=== PATIENT | male | born 1945 | race Caucasian/White ===

== ENCOUNTER 2017-01-04 22:25 | Emergency (ER) | payer MEDICARE ==
[2017-01-04] MEDS ORDERED: SODIUM CHLORIDE 0.9% 1,000 ML IV STA (22:31)
[2017-01-04] MEDS ORDERED: PANTOPRAZOLE 40 MG/10 ML VIAL IVP STA (22:31)
[2017-01-04] MEDS ORDERED: LORazepam 2 MG/ML SYRINGE IV PRN ×2 (22:36)
[2017-01-04] MEDS ORDERED: IPRATROPIUM-ALBUTEROL 3 ML NEB INHALATION PRN (22:36)
[2017-01-04] MEDS ORDERED: PROPOFOL 500 MG in EMPTY BAG 1 BAG IV SCH (22:45)
[2017-01-04] MEDS ORDERED: NOREPINEPHRIN 4 MG-0.9% NS PMX 4 MG in SALINE 1 250ML.BAG IV ONE (22:48)
--- NOTE | 2017-01-04 22:54 | XR ---
EXAMINATION TYPE: XR chest 1V portable DATE OF EXAM: 01/04/2017 10:45 PM COMPARISON: NONE HISTORY: Tube placement TECHNIQUE: Single frontal view of the chest is obtained. FINDINGS: There is a nasogastric tube and the tip is probably in the body of the stomach. There is a n endotracheal tube that has tip in fairly good position. There is patchy infiltrate in the left lowe r lobe. There is no heart failure. There is no pleural effusion. IMPRESSION: Tubing appears in good position. Left lower lobe pneumonia. No heart failure.
[2017-01-04 22:56] LABS: Appearance,Urine Turbid (Clear); Bilirubin,Urine Negative (Negative); Glucose,Urine (UA) Negative (Negative); Ketones,Urine Negative (Negative); Leukocyte Esterase,Urine Large (Negative); Nitrite,Urine Negative (Negative); PH, Urine 5.5 (5.0-8.0); Particle Count 191258; Protein,Urine 1+ (Negative); RBC,Urine >182 /hpf (0-5); Specific Gravity,Urine 1.014 (1.001-1.035); Squamous Epithelial Cell,Urine 42 /hpf (0-4); UA Billing (MACRO vs. MICRO) MICRO; Urobilinogen,Urine <2.0 mg/dL (<2.0); WBC,Urine >182 /hpf (0-5)
[2017-01-04 22:56] LABS: CH 29.9; CHCM 28.1; HCT 35.5 % (39.0-53.0); HDW 1.97; HGB 10.4 gm/dL (13.0-17.5); Hypochromasia Marked; Immature Gran Flag Marked; MCH 31.3 pg (25.0-35.0); MCHC 29.3 g/dL (31.0-37.0); Macrocytosis Moderate; Mean Platelet Volume 9.2; RBC 3.32 m/uL (4.30-5.90); RDW 13.2 % (11.5-15.5); WBC 7.7 k/uL (3.8-10.6); WBC (Perox) 8.49
[2017-01-04 23:00] LABS: Calcium 8.8 mg/dL (8.4-10.2); INR 1.2 (<1.1); Magnesium 3.4 mg/dL (1.6-2.3); Partial Thromboplastin Time 25.4 sec (22.0-30.0); Prothrombin Time 12.3 sec (9.0-12.0); Total Bilirubin 0.6 mg/dL (0.2-1.3); Total Protein 5.2 g/dL (6.3-8.2)
--- NOTE | 2017-01-04 23:04 | ED ---
General Adult HPI - General Chief complaint: Cardiac Arrest/CPR Stated complaint: cardiac Time Seen by Provider: 01/04/17 22:31 Source: EMS, RN notes reviewed Mode of arrival: EMS Limitations: altered mental status, physical limitation - History of Present Illness Initial comments: Patient is an unresponsive 71-year-old male presenting by EMS following cardiac arrest. Patient reportedly has been sick for a few days and vomiting. Family found patient unresponsive. Patient reportedly has kidney problems however has not yet started dialysis. Patient is unable to provide any further history. EMS did provide CPR for approximately 20 minutes before return of circulation. - Related Data Home Medications Medication Instructions Recorded Confirmed Baclofen [Lioresal] 5 mg PO BID 01/04/17 01/04/17 Doxycycline Monohydrate [Monodox] 100 mg PO DAILY 01/04/17 01/04/17 Allergies Allergy/AdvReac Type Severity Reaction Status Date / Time No Known Allergies Allergy Verified 01/04/17 23:18 Review of Systems ROS Statement: Those systems with pertinent positive or pertinent negative responses have been documented in the HPI. ROS Other: All systems not noted in ROS Statement are negative. Limitations: ROS unobtainable due to patients medical condition Past Medical History Additional Past Medical History / Comment(s): unknown pt is unresponsive, family not present and pt has not been here before, unable to find old records History of Any Multi-Drug Resistant Organisms: Unobtainable Additional Past Surgical History / Comment(s): unknown pt is unresponsive, family not present and pt has not been here before, unable to find old records Past Psychological History: Unable to Obtain Smoking Status: Unknown if ever smoked Past Alcohol Use History: Unable to Obtain Past Drug Use History: Unable to Obtain General Exam Limitations: altered mental status, physical limitation General appearance: obtunded Head exam: Present: atraumatic Eye exam: Present: other (Pupils are fixed and dilated) ENT exam: Present: other (Intubated) Neck exam: Present: normal inspection Respiratory exam: Present: other (No spontaneous breath sounds. Equal breath sounds with bagging insufflation.) Cardiovascular Exam: Present: tachycardia GI/Abdominal exam: Present: soft. Absent: tenderness Extremities exam: Present: normal inspection Neurological exam: Present: other (Unresponsive) Expanded Eye Response: (1) no response Motor Response: (1) no motor response Verbal Response: (1) no verbal response Psychiatric exam: Present: other (Nonverbal) Skin exam: Absent: rash Course Vital Signs 01/04/17 01/04/17 01/04/17 22:25 22:45 22:54 Temperature 99.4 F Pulse Rate 54 L 101 H 132 H Respiratory 12 12 Rate Blood Pressure 65/49 237/111 O2 Sat by Pulse 96 96 Oximetry 01/04/17 01/04/17 01/04/17 23:01 23:31 23:32 Temperature Pulse Rate 103 H 120 H 113 H Respiratory 12 Rate Blood Pressure 102/52 253/122 O2 Sat by Pulse 96 Oximetry 01/04/17 01/04/17 01/04/17 23:36 23:44 23:54 Temperature Pulse Rate 113 H 102 H 107 H Respiratory 12 14 Rate Blood Pressure 215/79 130/46 208/100 O2 Sat by Pulse 96 96 Oximetry 01/05/17 01/05/17 00:00 01:00 Temperature 98.7 F Pulse Rate 122 H 93 Respiratory 14 20 Rate Blood Pressure 109/55 69/41 O2 Sat by Pulse 97 96 Oximetry - Reevaluation(s) Reevaluation #1: 01/04/17 23:01 Patient again lost pulse and did respond to 1 amp of bicarb and 1 epinephrine. 01/04/17 23:20 Patient technically does meet sepsis criteria however other factors are involved. Patient does have appearance of UTI. IV Rocephin has been started. Patient has been provided 2 L of fluid so far and this is continued. Case was discussed in detail with Dr. Lee who recommends further IV fluids and treatment of hyperkalemia. 01/04/17 23:30 Patient did lose pulses again and CPR was done less than 5 minutes. Patient was given a 2 and calcium and epinephrine. 01/04/17 23:40 Discussion had with family who confirms history. They state patient just started getting sick yesterday. They're made aware of extremely critical condition. Repeat EKG shows A. fib with rate of 103. To rest before. QT 340. QTc 455. Right axis. Septal Q waves. No acute ST change. 01/05/17 00:46 Patient has now lost pulses a total of 4 times in the emergency department. Niece again updated and decision is made at this time to make patient DO NOT RESUSCITATE. 01/05/17 01:13 Patient was found to have loss of pulse. Patient has no pulses. Asystole on the monitor. No spontaneous heart sounds. No taste breath sounds. Pupils are fixed and dilated. No signs of pain. Time of is 1:11 AM. EKG Findings - EKG Comments: EKG Findings:: A. fib with RVR, rate 135. QRS 86. QT 36. QTc 429. Normal axis. Normal QRS. Diffuse T-wave inversion. Medical Decision Making - Medical Decision Making Family was notified by nursing staff. Case was discussed with registered medical assistant Aniya [facility] Unable to get ahold of primary care physician. Douglas thought the primary care physician was out of [facility], Dr. Tahira Rick, but we are unable to identify this time. - Lab Data Result diagrams: 01/04/17 22:40 01/04/17 22:40 Lab Results 01/04/17 01/04/17 01/04/17 Range/Units 22:31 22:40 22:40 WBC 7.7 (3.8-10.6) k/uL RBC 3.32 L (4.30-5.90) m/uL Hgb 10.4 L (13.0-17.5) gm/dL Hct 35.5 L (39.0-53.0) % MCV 107.0 H (80.0-100.0) fL MCH 31.3 (25.0-35.0) pg MCHC 29.3 L (31.0-37.0) g/dL RDW 13.2 (11.5-15.5) % Plt Count 195 (150-450) k/uL Neutrophils % (Manual) 46.0 % Band Neutrophils % 20.0 % Lymphocytes % (Manual) 27.5 % Monocytes % (Manual) 2.0 % Metamyelocytes % 4.5 % Neutrophils # (Manual) 5.1 (1.3-7.7) k/uL Lymphocytes # (Manual) 2.1 (1.0-4.8) k/uL Monocytes # (Manual) 0.2 (0-1.0) k/uL Nucleated RBCs 0 (0-0) /100 WBC Manual Slide Review Performed Hypochromasia Marked Macrocytosis Moderate PT (9.0-12.0) sec INR (<1.1) APTT (22.0-30.0) sec Sample Site ABG pH (7.35-7.45) ABG pCO2 (35-45) mmHg ABG pO2 (83-108) mmHg ABG HCO3 (21-25) mmol/L ABG Total CO2 (19-24) mmol/L ABG O2 Saturation (94-97) % ABG Base Excess mmol/L FiO2 % Sodium (137-145) mmol/L Potassium (3.5-5.1) mmol/L Chloride (98-107) mmol/L Carbon Dioxide (22-30) mmol/L Anion Gap mmol/L BUN (9-20) mg/dL Creatinine (0.66-1.25) mg/dL Est GFR (MDRD) Af Amer (>60 ml/min/1.73 sqM) Est GFR (MDRD) Non-Af (>60 ml/min/1.73 sqM) Glucose (74-99) mg/dL Plasma Lactic Acid Ed (0.7-2.0) mmol/L Calcium (8.4-10.2) mg/dL Phosphorus (2.5-4.5) mg/dL Magnesium (1.6-2.3) mg/dL Total Bilirubin (0.2-1.3) mg/dL AST (17-59) U/L ALT (21-72) U/L Alkaline Phosphatase (38-126) U/L Total Creatine Kinase 2176 H (55-170) U/L CK-MB (CK-2) 15.2 H* (0.0-2.4) ng/mL CK-MB (CK-2) Rel Index Troponin I 0.143 H* (0.000-0.034) ng/mL Total Protein (6.3-8.2) g/dL Albumin (3.5-5.0) g/dL Urine Color Yellow Urine Appearance Turbid (Clear) Urine pH 5.5 (5.0-8.0) Ur Specific [place] 1.014 (1.001-1.035) Urine Protein 1+ H (Negative) Urine Glucose (UA) Negative (Negative) Urine Ketones Negative (Negative) Urine Blood Moderate H (Negative) Urine Nitrate Negative (Negative) Urine Bilirubin Negative (Negative) Urine Urobilinogen <2.0 (<2.0) mg/dL Ur Leukocyte Esterase Large H (Negative) Urine RBC >182 H (0-5) /hpf Urine WBC >182 H (0-5) /hpf Ur Squamous Epith Cells 42 H (0-4) /hpf Gastric Occult Blood (Negative) 01/04/17 01/04/17 01/04/17 Range/Units 22:40 22:40 22:40 WBC (3.8-10.6) k/uL RBC (4.30-5.90) m/uL Hgb (13.0-17.5) gm/dL Hct (39.0-53.0) % MCV (80.0-100.0) fL MCH (25.0-35.0) pg MCHC (31.0-37.0) g/dL RDW (11.5-15.5) % Plt Count (150-450) k/uL Neutrophils % (Manual) % Band Neutrophils % % Lymphocytes % (Manual) % Monocytes % (Manual) % Metamyelocytes % % Neutrophils # (Manual) (1.3-7.7) k/uL Lymphocytes # (Manual) (1.0-4.8) k/uL Monocytes # (Manual) (0-1.0) k/uL Nucleated RBCs (0-0) /100 WBC Manual Slide Review Hypochromasia Macrocytosis PT 12.3 H (9.0-12.0) sec INR 1.2 (<1.1) APTT 25.4 (22.0-30.0) sec Sample Site ABG pH (7.35-7.45) ABG pCO2 (35-45) mmHg ABG pO2 (83-108) mmHg ABG HCO3 (21-25) mmol/L ABG Total CO2 (19-24) mmol/L ABG O2 Saturation (94-97) % ABG Base Excess mmol/L FiO2 % Sodium 153 H (137-145) mmol/L Potassium 6.2 H* (3.5-5.1) mmol/L Chloride 99 (98-107) mmol/L Carbon Dioxide 10 L* (22-30) mmol/L Anion Gap 44 mmol/L BUN 102 H* (9-20) mg/dL Creatinine 11.70 H* (0.66-1.25) mg/dL Est GFR (MDRD) Af Amer 5 (>60 ml/min/1.73 sqM) Est GFR (MDRD) Non-Af 4 (>60 ml/min/1.73 sqM) Glucose 64 L (74-99) mg/dL Plasma Lactic Acid Ed (0.7-2.0) mmol/L Calcium 8.8 (8.4-10.2) mg/dL Phosphorus 17.9 H* (2.5-4.5) mg/dL Magnesium 3.4 H (1.6-2.3) mg/dL Total Bilirubin 0.6 (0.2-1.3) mg/dL AST 203 H (17-59) U/L ALT 130 H (21-72) U/L Alkaline Phosphatase 76 (38-126) U/L Total Creatine Kinase (55-170) U/L CK-MB (CK-2) (0.0-2.4) ng/mL CK-MB (CK-2) Rel Index Troponin I (0.000-0.034) ng/mL Total Protein 5.2 L (6.3-8.2) g/dL Albumin 3.0 L (3.5-5.0) g/dL Urine Color Urine Appearance (Clear) Urine pH (5.0-8.0) Ur Specific [place] (1.001-1.035) Urine Protein (Negative) Urine Glucose (UA) (Negative) Urine Ketones (Negative) Urine Blood (Negative) Urine Nitrate (Negative) Urine Bilirubin (Negative) Urine Urobilinogen (<2.0) mg/dL Ur Leukocyte Esterase (Negative) Urine RBC (0-5) /hpf Urine WBC (0-5) /hpf Ur Squamous Epith Cells (0-4) /hpf Gastric Occult Blood Positive (Negative) 01/04/17 01/04/17 Range/Units 22:40 23:51 WBC (3.8-10.6) k/uL RBC (4.30-5.90) m/uL Hgb (13.0-17.5) gm/dL Hct (39.0-53.0) % MCV (80.0-100.0) fL MCH (25.0-35.0) pg MCHC (31.0-37.0) g/dL RDW (11.5-15.5) % Plt Count (150-450) k/uL Neutrophils % (Manual) % Band Neutrophils % % Lymphocytes % (Manual) % Monocytes % (Manual) % Metamyelocytes % % Neutrophils # (Manual) (1.3-7.7) k/uL Lymphocytes # (Manual) (1.0-4.8) k/uL Monocytes # (Manual) (0-1.0) k/uL Nucleated RBCs (0-0) /100 WBC Manual Slide Review Hypochromasia Macrocytosis PT (9.0-12.0) sec INR (<1.1) APTT (22.0-30.0) sec Sample Site RBRACH ABG pH 7.02 L* (7.35-7.45) ABG pCO2 54 H (35-45) mmHg ABG pO2 270 H (83-108) mmHg ABG HCO3 13 L (21-25) mmol/L ABG Total CO2 15 L (19-24) mmol/L ABG O2 Saturation 99.0 H (94-97) % ABG Base Excess -16.0 mmol/L FiO2 100 % Sodium (137-145) mmol/L Potassium (3.5-5.1) mmol/L Chloride (98-107) mmol/L Carbon Dioxide (22-30) mmol/L Anion Gap mmol/L BUN (9-20) mg/dL Creatinine (0.66-1.25) mg/dL Est GFR (MDRD) Af Amer (>60 ml/min/1.73 sqM) Est GFR (MDRD) Non-Af (>60 ml/min/1.73 sqM) Glucose (74-99) mg/dL Plasma Lactic Acid Ed >24.0 H* (0.7-2.0) mmol/L Calcium (8.4-10.2) mg/dL Phosphorus (2.5-4.5) mg/dL Magnesium (1.6-2.3) mg/dL Total Bilirubin (0.2-1.3) mg/dL AST (17-59) U/L ALT (21-72) U/L Alkaline Phosphatase (38-126) U/L Total Creatine Kinase (55-170) U/L CK-MB (CK-2) (0.0-2.4) ng/mL CK-MB (CK-2) Rel Index Troponin I (0.000-0.034) ng/mL Total Protein (6.3-8.2) g/dL Albumin (3.5-5.0) g/dL Urine Color Urine Appearance (Clear) Urine pH (5.0-8.0) Ur Specific [place] (1.001-1.035) Urine Protein (Negative) Urine Glucose (UA) (Negative) Urine Ketones (Negative) Urine Blood (Negative) Urine Nitrate (Negative) Urine Bilirubin (Negative) Urine Urobilinogen (<2.0) mg/dL Ur Leukocyte Esterase (Negative) Urine RBC (0-5) /hpf Urine WBC (0-5) /hpf Ur Squamous Epith Cells (0-4) /hpf Gastric Occult Blood (Negative) - Radiology Data Radiology results: image reviewed (Chest x-ray shows ET tube in appropriate position. Left lower lobe infiltrate.) Critical Care Time Critical Care Time: Yes Total Critical Care Time: 65 Disposition Clinical Impression: Cardiac arrest, Hyperkalemia, Acute renal failure (ARF), Sepsis, GI hemorrhage , Pneumonia, Urinary tract infection Disposition: Referrals: None,Stated [Primary Care Provider] - 1-2 days Preliminary Cause of : Heart attack arrest secondary to acute renal failure
[2017-01-04 23:10] LABS: Potassium 6.2 mmol/L (3.5-5.1)
[2017-01-04 23:12] LABS: Phosphorous 17.9 mg/dL (2.5-4.5)
[2017-01-04] MEDS ORDERED: INSULIN REGULAR 100 UNIT/ML VIAL IV ONE (23:16)
[2017-01-04] MEDS ORDERED: ALBUTEROL NEBULIZED 2.5 MG/3 ML INHALATION STA (23:16)
[2017-01-04] MEDS ORDERED: DEXTROSE 50%-WATER 50 ML SYRINGE IVP STA (23:17)
[2017-01-04 23:18] LABS: Add Differential Manual Differential
[2017-01-04 23:25] LABS: Manual Review Performed; Metamyelocytes % 4.5 %; Nucleated Red Blood Cells 0 /100 WBC (0-0); Total Cells Counted 200
[2017-01-04 23:28] LABS: Creatine Kinase MB 15.2 ng/mL (0.0-2.4); Troponin I 0.143 ng/mL (0.000-0.034)
[2017-01-04] MEDS ORDERED: SODIUM CHLORIDE 0.9% 500 ML IV STA (23:41)
[2017-01-04 23:53] LABS: ABG HCO3 13 mmol/L (21-25); ABG PCO2 54 mmHg (35-45); ABG PH 7.02 (7.35-7.45); ABG PO2 270 mmHg (83-108); ABG TCO2 15 mmol/L (19-24)
[2017-01-05] MEDS ORDERED: DEXTROSE 5% IN WATER 1,000 ML with SODIUM BICARB (1 MEQ/ML) 150 ML IV SCH ×2
[2017-01-05] MEDS ORDERED: CALCIUM GLUCONATE 1,000 MG in SODIUM CHLORIDE 0.9% 100 ML IVPB ONE ×2
[2017-01-05] MEDS ORDERED: SODIUM CHLORIDE 0.9% 500 ML IV STA (00:41)
[2017-01-05 01:02] VITALS: BP 69/41; PULSE 93; RESP 20; TEMP 98.7
--- NOTE | 2017-01-05 14:18 | CT ---
EXAM: CT Head Without Intravenous Contrast. CLINICAL HISTORY: Reason: weakness, unresponsive, ams TECHNIQUE: Axial computed tomography images of the head/brain without intravenous contrast. CTDI is 60.30 mGy and DLP is 1108.40 mGy-cm COMPARISON: No relevant prior studies available. FINDINGS: Brain: No acute intracranial hemorrhage, loss of vargas-white differentiation, or significant mass effect. Areas of hypoattenuation in the periventricular white matter bilaterally are compatible with the sequela of chronic small vessel ischemic disease. Ventricular and sulcal prominence commensurate with the patient's age. Ventricles: See above. Bones/joints: Unremarkable. No acute fracture. Soft tissues: Unremarkable. Sinuses: Fluid is present in the maxillary and sphenoid sinuses bilaterally. Partial opacification of the ethmoid air cells. Mastoid air cells: Unremarkable. IMPRESSION: No acute intracranial abnormality.
== END 2017-01-05 02:07 | disposition expired ==
LOC: EC 22:25
DX: I46.9 Cardiac arrest, cause unspecified (principal); N17.9 Acute kidney failure, unspecified; A41.9 Sepsis, unspecified organism; R65.20 Severe sepsis without septic shock; J18.9 Pneumonia, unspecified organism; K92.2 Gastrointestinal hemorrhage, unspecified; N39.0 Urinary tract infection, site not specified; E87.5 Hyperkalemia
CPT/HCPCS: 99291 ×2; 92950 ×2; 96365 ×2; 96375 ×4; 96361 ×2; 43753; 36415; 94640; 36600; 94002; 93005; 80053; 82550; 82553; 82805; 83605; 83735; 84100; 84484; 85025; 85610; 85730; 82271; 81001; 87040; 71010; 70450; J2060; J0696; J0610; C9113